=== PATIENT | male | born 1980 | race African-American/Black ===

== ENCOUNTER 2018-04-15 15:54 | Emergency (ER) | payer SELFPAY ==
--- NOTE | 2018-04-15 19:22 | UC ---
Back Pain HPI - HPI Summary HPI Summary: Arrives accompanied by a female friend. Patient reports a history of chronic low back pain for the past 2-3 years. No specific injury at that time. 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 Has occasional flares of back pain that he usually manages with massage, heat and OTC medications as needed. States he started with worsening low back pain 2 days ago that today became unbearable. Patient states he was unable to stand up at all. Called a friend who was able to help him get to the . She gave him some OTC ibuprofen and naproxen which seems to have helped. Patient denies numbness/tingling. No loss of bowel or bladder control. No saddle anesthesia. - History of Current Complaint Chief Complaint: UCBackPain Stated Complaint: BACK PAIN Time Seen by Provider: 04/15/18 18:24 Hx Obtained From: Patient, Family/Diamond Assorter - FEMALE FRIEND Onset/Duration: Gradual Onset, Lasting Days, Still Present Timing: Constant Severity Initially: Moderate Severity Currently: Moderate Pain Intensity: 9 Pain Scale Used: 0-10 Numeric Back Pain: Is Discrete @ - MID/LOW BACK Character: Sharp, Aching Aggravating Factor(s): Movement Alleviating Factor(s): OTC Meds - NSAIDS Associated Signs And Symptoms: Negative: Swelling, Bruising, Weakness, Numbness , Tingling, Bladder Incontinence, Bowel Incontinence - Allergies/Home Medications Allergies/Adverse Reactions: Allergies Allergy/AdvReac Type Severity Reaction Status Date / Time chloroquine Allergy Itching Verified 04/15/18 16:25 RAW SHRIMP Allergy SLIGHT Uncoded 07/22/13 11:00 ITCHINESS PMH/Surg Hx/FS Hx/Imm Hx - Additional Past Medical History Additional PMH: CHRONIC LOW BACK PAIN Cardiovascular History: Hypertension - Surgical History Surgical History: None - Family History Known Family History: Positive: Non-Contributory - Social History Alcohol Use: Occasionally Substance Use Type: None Smoking Status (MU): Never Smoked Tobacco Review of Systems All Other Systems Reviewed And Are Negative: Yes Constitutional: Positive: Negative Skin: Positive: Negative Respiratory: Positive: Negative Cardiovascular: Positive: Negative Gastrointestinal: Positive: Negative Neurovascular: Positive: Negative Musculoskeletal: Positive: Arthralgia, Decreased ROM, Myalgia Physical Exam Triage Information Reviewed: Yes Appearance: Pain Distress - MODERATE Vital Signs: Initial Vital Signs Temp 98.5 F 04/15/18 16:16 Pulse 84 04/15/18 16:16 Resp 16 04/15/18 16:16 BP 146/106 04/15/18 16:16 Pulse Ox 100 04/15/18 16:16 Vital Signs Reviewed: Yes Eyes: Positive: Conjunctiva Clear ENT: Positive: Hearing grossly normal Neck: Positive: Supple Respiratory: Positive: No respiratory distress, No accessory muscle use Cardiovascular: Positive: Pulses Normal Abdomen Description: Positive: Soft Musculoskeletal: Positive: No Edema, ROM Limited @ - BACK, Other: - MINIMALLY TTP MID/LOW BACK Neurological: Positive: Alert Psychological: Positive: Age Appropriate Behavior Skin: Negative: Rashes Back Pain Course/Dx - Course Course Of Treatment: PT WITH 2-3 YEARS OF CHRONIC LOW BACK PAIN. IS UNSURE WHAT TRIGGERED THIS ACUTE EPISODE BUT STATES IT IS THE WORST IT HAS EVER BEEN. SX IMPROVED WITH NSAIDS. DENIES ANY NEUROLOGIC SX. PT HAS NEVER HAD IMAGING. NO CLEAR INITIAL INJURY. PT DECLINES [facility] TODAY DUE TO LACK OF INSURANCE. STATES HE WILL FOLLOW-UP WITH PCP IN THE NEW YEAR AND DISCUSS IMAGING THEN. FOR NOW - NAPROXEN, FLEXERIL, PREDNISONE AND PT REFERRAL.TO ED IF SX WORSEN. - Differential Dx/Diagnosis Provider Diagnosis: Acute exacerbation of chronic low back pain Discharge - Sign-Out/Discharge Documenting (check all that apply): Patient Departure All imaging exams completed and their final reports reviewed: No Studies - Discharge Plan Condition: Stable Disposition: HOME Prescriptions: Cyclobenzaprine TAB* [Flexeril TAB*] 10 mg PO BID PRN #30 tab PRN Reason: Pain Naproxen [Naproxen 500 mg tab] 500 mg PO BID PRN #30 tablet PRN Reason: Pain predniSONE TAB* [Deltasone 20 MG TAB*] 40 mg PO DAILY #10 tab Patient Education Materials: Acute Low Back Pain (ED), Chronic Back Pain (DC) Referrals: Aubrey Max MD [Primary Care Provider] - If Needed Additional Instructions: YOUR SYMPTOMS SHOULD IMPROVE SIGNIFICANTLY OVER THE NEXT 1-2 WEEKS. IF YOU DO NOT IMPROVE EXPECTED FOLLOW-UP WITH YOUR PCP. YOU MAY BENEFIT FROM IMAGING AT THAT TIME. PHYSICAL THERAPY REFERRAL ALSO PROVIDED FOR YOU TO USE IF DESIRED. REST. NAPROXEN NEEDED FOR DISCOMFORT. TAKE MUSCLE RELAXER BEFORE BED. PREDNISONE MAY HELP WITH INFLAMMATION. BE SURE TO GO THROUGH SLOW RANGE OF MOTION AND STRETCHING EXERCISES DAILY YOU ARE ABLE TO PREVENT STIFFENING UP AND MAKING THE DISCOMFORT WORSE. GO TO THE ED WITHOUT FAIL IF YOU DEVELOP WORSENING NUMBNESS/TINGLING IN YOUR LEGS, NUMBNESS IN THE GENITAL REGION, LOSS OF BOWEL/BLADDER CONTROL, INTOLERABLE PAIN OR ANY OTHER CONCERNING SYMPTOMS. - Billing Disposition and Condition Condition: STABLE Disposition: Home
[2018-04-15 19:31] VITALS: BP 135/80
== END 2018-04-15 19:29 | disposition home or self-care (01) ==
LOC: UCEAST 15:54
DX: G89.29 Other chronic pain (principal); M54.5 Low back pain; Z88.8 Allergy status to other drugs, medicaments and biological substances; I10 Essential (primary) hypertension
CPT/HCPCS: 99202; G0463